=== PATIENT | male | born 1980 | race Caucasian/White ===

== ENCOUNTER 2016-09-14 11:24 | Emergency (ER) | payer OTHER ==
[~2016-09-14] VITALS: Ht 147.3 cm; Wt 74.8 kg
[~2016-09-14 11:24] MED LIST: ACETAMINOP160 MG/12 PER TUBE; AMANTADINE PER TUBE; AMANTADINE100 M1 PG; ARICEPT 5 MG TAB5 MG PER TUBE; BISACODYL SUPP10 MG RECTAL; CARBAMAZEP100 MG/5 M PER TUBE; CARBAMAZEPINE200 M2 PO; CERTAVITE W/LU1 EACH PER TUBE; CLONAZEPAM 0.50.5 M1 PER TUBE; CLONAZEPAM 1 MG1 M1 PO; CLOTRIMAZOLE 1%15 G1 TOP; ENEMA133 ML RECTAL; ERYGEL 2% GEL60 GM TOP; LEVOTHYROXINE0.05 MG PER TUBE; MOM PER TUBE; NAMENDA 10 MG T10 MG PER TUBE; NAMENDA10 MG/5 ML PER TUBE; ORADENT 0.1% DEN5 G1 TOP; SENNA PER TUBE; SERTRALINE20 MG/1 ML PER TUBE; TIZANIDINE HCL4 MG PER TUBE; TRIAMCINOLONE TOP; VALPROIC A250 MG/51 PER TUBE; ZANAFLEX2 M2 PER TUBE
[2016-09-14] MEDS ORDERED: SENNA PLUS TAB1 EACH PER TUBE (11:47)
[2016-09-14 12:44] LABS: ABSOLUTE NEUTROPHILS 5.2 thou/uL (1.4-8.2); BASOPHILS 1.1 % (0.0-2.0); EOSINOPHILS 2.6 % (0.0-3.0); HEMATOCRIT 45.7 % (42.0-52.0); HEMOGLOBIN 15.5 gm/dL (14.0-18.0); LYMPHOCYTES 21.1 % (24.0-44.0); MCH 35.1 pg (26.0-34.0); MCV 103.3 fL (80.0-100.0); MONOCYTES 11.5 % (1.0-8.0); PLATELET COUNT 162 thou/uL (150-400); POLYS 63.7 % (36.0-66.0); RBC 4.43 mil/uL (4.50-6.00); RDW 13.5 % (10.5-14.5); WBC 8.1 thou/uL (4.0-11.0)
[2016-09-14 12:57] LABS: ALBUMIN 3.7 g/dL (3.4-5.0); CREATININE 0.6 mg/dL (0.7-1.3); MANUAL DIFF NO; POTASSIUM 4.2 mmol/L (3.5-5.1); TOTAL BILIRUBIN 0.2 mg/dL (<0.1-1.0); TOTAL PROTEIN 8.1 g/dL (6.4-8.2)
[2016-09-14] MEDS ORDERED: NYSTATIN 100,0015 GM TOP (14:16)
== END 2016-09-14 16:44 | disposition home or self-care (01) ==
LOC: ER 11:24
PROVIDERS: Physician Assistant
DX: B37.49 Other urogenital candidiasis (principal); E03.9 Hypothyroidism, unspecified; E11.9 Type 2 diabetes mellitus without complications; Z88.8 Allergy status to other drugs, medicaments and biological substances

== ENCOUNTER 2018-01-18 15:05 | Emergency (ER) | payer OTHER ==
[~2018-01-18] VITALS: Ht 157.5 cm; Wt 65.8 kg
[~2018-01-18 15:05] MED LIST changes: +NYSTATIN 100,0015 GM TOP; +SENNA PLUS TAB1 EACH PER TUBE
== END 2018-01-18 19:00 | disposition home or self-care (01) ==
LOC: ER 15:05
DX: K94.23 Gastrostomy malfunction (principal); E03.9 Hypothyroidism, unspecified; E11.9 Type 2 diabetes mellitus without complications; Z88.8 Allergy status to other drugs, medicaments and biological substances; Y84.8 Other medical procedures as the cause of abnormal reaction of the patient, or of later complication, without mention of misadventure at the time of the procedure; Y82.8 Other medical devices associated with adverse incidents

== ENCOUNTER 2020-05-20 08:42 | Emergency (ER) | payer OTHER ==
[~2020-05-20] VITALS: Ht 172.7 cm; Wt 68.0 kg
[2020-05-20 09:48] VITALS: BP 129/98
== END 2020-05-20 09:48 ==
LOC: ER 08:42
DX: Z43.1 Encounter for attention to gastrostomy (principal); E03.9 Hypothyroidism, unspecified; E11.9 Type 2 diabetes mellitus without complications; Z79.899 Other long term (current) drug therapy; Z88.8 Allergy status to other drugs, medicaments and biological substances

== ENCOUNTER 2020-05-22 10:23 | Emergency (ER) | payer OTHER ==
[~2020-05-22] VITALS: Ht 162.6 cm; Wt 59.0 kg
--- NOTE | ~2020-05-22 | EMS ---
[facility] [address] [place] [address] EMS Patient Care Report Name: MARYURI GARNETT Room #: REG LILLIE Sutherland#: [id number] Admission: 05/22/20 Attend Phys: Discharge: Date of : 76 Report #: [id number] THIS REPORT FOR: //name// Report Transmitted: 05/22/2020 10:09 EMS Care Summary [place], [place]/[facility] Incident [id number] @ 05/22/2020 09:43 Incident Location [address] [place] [address] 324 Patient MARYURI GARNETT Male, 39 Years 1980 Patient Address [address] [place] [address] Patient History Depression,Quadriplegia,Hypothyroidism,Respiratory Failure, Patient Allergies No known allergies,Other drug allergy, Patient Medications Carbamazepine, Senna, Other, Levothyroxine, Acetaminophen, Tizanidine, Sertraline, Loperamide, Clonazepam, Chief Complaint pulled out PEG tube Disposition Transported No Lights/[place] Dispatch Reason Abdominal Pain/Problems Transported To [facility] Narrative 39 y/o male that pulled his PEG tube out Upon arrival the pt was lying in bed awake, conscious He is aphasic and [facility] [address] [place] [address] EMS Patient Care Report Name: MARYURI GARNETT Room #: REG LILLIE Sutherland#: [id number] Admission: 05/22/20 Attend Phys: Discharge: Date of : [birth year] Report #: [id number] contracted. This is his normal, He has a patent airway, breathing is normal, and has a strong reg radial pulse. The pt is bed bound due to an accident from when he was in his teens. The pt managed to pull his PEG tube out by accident. The pt was lifted onto our cot by EMS and staff at the [place] staff. The pt was covered with a blanket, secured to the cot, and loaded into the ambulance. VS were obtained. The pt was transported to [place] to have the PEG tube replaced. There was no incidents or changes with the pt. The pt was taken to room 2 and EMS gave report to RN. EMS returned to service. Initial Vitals @10:14P: 82,R: 16,BP: 124/84,Pain: 0/10,GCS: 6,SpO2: 100,Revised Trauma: 10, Assessments @10:11MENTAL:Person Oriented,Time Oriented,Place Oriented,Event Oriented,SKIN:HEENT:Head/Face: No Abnormalities,Neck/Airway: No Abnormalities,LUNG SOUNDS:General: No Abnormalities,ABDOMEN:General: No Abnormalities,PELVIS//GI:No Abnormalities,EXTREMITIES:Capillary Refill: Left Upper: < 2 Sec,Capillary Refill: Right Upper: < 2 Sec,Left Arm: No Abnormalities,Right Arm: No Abnormalities,Left Leg: No Abnormalities,Right Leg: No Abnormalities,PULSE:Radial: 2+ Normal,NEURO:No Abnormalities, Impression Acute abdomen Procedures @10:10ALS AssessmentResponse: UnchangedSucceeded Timeline 09:42,Call Received 09:42,Dispatch Notified 09:43,Dispatched 09:43,En Route 09:57,On Scene 09:58,At Patient 10:10,Depart Scene 10:10,ALS Assessment,Response: UnchangedSucceeded, 10:14,BP: 124/84 M,PULSE: 82,RR: 16 R,SPO2: 100 Ox,ETCO2: ,BG: ,PAIN: 0,GCS: 6, 10:18,At Destination 10:33,Call Closed Disclaimer v1.1 Copyright 2020 [employer] This EMS Care Summary contains data elements from the applicable legal record (which may be displayed differently). It is designed to provide pertinent information for the following purposes: continuity of care, clinical quality, and state data reporting. The complete legal record is available to ED staff [address] [address] EMS Patient Care Report Name: MARIOLAMARYURI Room #: REG LILLIE Sutherland#: [id number] Admission: 05/22/20 Attend Phys: Discharge: Date of : [birth year] Report #: [id number] and administrators of the receiving hospital in [employer]'s Patient Tracker. All data is provided "as is."
[2020-05-22 10:25] VITALS: BP 134/100
== END 2020-05-22 13:00 ==
LOC: ER 10:23
DX: Z43.1 Encounter for attention to gastrostomy (principal); E03.9 Hypothyroidism, unspecified; E11.9 Type 2 diabetes mellitus without complications; Z79.899 Other long term (current) drug therapy; Z79.2 Long term (current) use of antibiotics; Z88.1 Allergy status to other antibiotic agents

== ENCOUNTER 2021-04-14 09:30 | Emergency (ER) | payer OTHER ==
[~2021-04-14] VITALS: Ht 165.1 cm; Wt 70.3 kg
--- NOTE | ~2021-04-14 | EMS ---
[address] [address] EMS Patient Care Report Name: MARYURI GARNETT Room #: REG LILLIE Sutherland#: [id number] Admission: 04/14/21 Attend Phys: Discharge: Date of : [birth year] Report #: [id number] THIS REPORT FOR: //name// Report Transmitted: 04/14/2021 09:52 EMS Care Summary [place], [place]/[facility] Incident [id number] @ 04/14/2021 08:37 Incident Location [address] [facility] 324 Patient MARYURI GARNETT Male, 40 Years 1980 Patient Address [address] [place] [address] Patient History Diabetes,Quadriplegia,Past Traumatic Brain Injury,Constipation,Hypothyroidism,Dysphagia, Patient Allergies Other drug allergy, Patient Medications Carbamazepine, Acetaminophen, Bisacodyl, Levothyroxine, Tizanidine, Loperamide, Chief Complaint Vomiting/Constipation Disposition Transported No Lights/[place] Dispatch Reason Sick Person Transported To [facility] Narrative [id number] dispatched to a sick case at address stated above. [address] [address] EMS Patient Care Report Name: MARYURI GARNETT Room #: REG LILLIE Sutherland#: [id number] Admission: 04/14/21 Attend Phys: Discharge: Date of : [birth year] Report #: [id number] arrived on scene and made contact with pt. Pt was found laying supine in jail bed. 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 Pt maintaing own ABC's and has strong regular radial pulses. Pts mother on scene as well as jail RN state pt was given a suppository yesterday 04/13 in which RN found pt had been trying to make a bowel movement for over 45 minutes however was too constipated to pass. RN stated that pt then vomited twice today 04/14 and did not note any abnormalities, blood, or coffee ground consitency in emesis. Pt was then transferred to EMS cot and secured to stretcher. Pt was loaded into ambulance via stretcher and vitals were monitored continuously throughout transport. Pts abdomen was assessed and appeared soft/nontender in all quadrants. Pt G-tube did not show any abnormalities. Pt was connected to 2l of oxygen via nasal canula to improve baseline O2 sats. Pt responded well to therapy. Upon arrival to ED pt was unloaded from ambulance and brought to ER room 10. Pt was then transferred to hospital bed via draw sheet method and verbal report was given to RN. Pt care transferred to RN. M5Perry return in service. Initial Vitals @09:21P: 101,CO: 1,SpO2: 100, @09:14P: 101,CO: 1,SpO2: 97, @09:15P: 101,BP: 148/94, @09:09P: 103,R: 18,BP: 152/91,GCS: 8,Temp: 96F,Glucose: 95,CO: 6,SpO2: 93,Revised Trauma: 10,PR Suspected: false Assessments @09:00MENTAL:Other,SKIN:HEENT:LUNG SOUNDS:General: Vomiting,General: Other,ABDOMEN:General: Vomiting,General: Other,PELVIS//GI:No Abnormalities,EXTREMITIES:Left Arm: No Abnormalities,Right Arm: No Abnormalities,Left Leg: No Abnormalities,Right Leg: No Abnormalities,PULSE:NEURO:No Abnormalities,@09:15MENTAL:No Abnormalities,SKIN:No Abnormalities,HEENT:Head/Face: No Abnormalities,Eyes: No Abnormalities,Neck/Airway: No Abnormalities,LUNG SOUNDS:General: No Abnormalities,Left Upper: No Abnormalities,Right Upper: No Abnormalities,Left Lower: No Abnormalities,Right Lower: No Abnormalities,ABDOMEN:General: No Abnormalities,Left Upper: No Abnormalities,Right Upper: No Abnormalities,Left Lower: No Abnormalities,Right Lower: No Abnormalities,PELVIS//GI:No Abnormalities,EXTREMITIES:Left Arm: No Abnormalities,Right Arm: No Abnormalities,Left Leg: No Abnormalities,Right Leg: No Abnormalities,PULSE:NEURO:No Abnormalities, Impression Nausea Procedures [address] [address] EMS Patient Care Report Name: MARYURI GARNETT Room #: REG LILLIE Sutherland#: [id number] Admission: 04/14/21 Attend Phys: Discharge: Date of : [birth year] Report #: [id number] @08:57 ALS Assessment @09:10 Oxygen FlowRate: 2 Device: Nasal Cannula (NC) Response: ImprovedSucceeded @09:10 3-Lead ECG Response: UnchangedSucceeded @09:05 Stretcher Response: Unchanged Timeline 08:35,Call Received 08:35,Dispatch Notified 08:37,Dispatched 08:39,En Route 08:54,On Scene 08:56,At Patient 08:57,ALS Assessment, 09:05,Stretcher,Response: Unchanged 09:09,BP: 152/91 M,PULSE: 103,RR: 18 R,SPO2: 93 Ox,ETCO2: ,B,PAIN: ,GCS: 8, 09:10,Oxygen FlowRate: 2 Device: Nasal Cannula (NC) Response: ImprovedSucceeded, 09:10,3-Lead ECG,Response: UnchangedSucceeded, 09:14,BP: / M,PULSE: 101,RR: R,SPO2: 97 Ox,ETCO2: ,BG: ,PAIN: ,GCS: , 09:15,BP: 148/94 M,PULSE: 101,RR: R,SPO2: Ox,ETCO2: ,BG: ,PAIN: ,GCS: , 09:17,Depart Scene 09:21,BP: / M,PULSE: 101,RR: R,SPO2: 100 Ox,ETCO2: ,BG: ,PAIN: ,GCS: , 09:42,At Destination 09:47,Call Closed Disclaimer v1.1 Copyright 2020 [employer] This EMS Care Summary contains data elements from the applicable legal record (which may be displayed differently). It is designed to provide pertinent information for the following purposes: continuity of care, clinical quality, and state data reporting. The complete legal record is available to ED staff and administrators of the receiving hospital in [employer]'s Patient Tracker. All data is provided "as is."
[2021-04-14] MEDS ORDERED: LOPERAMIDE2 MG PER TUBE (09:56)
[2021-04-14] MEDS ORDERED: NAMENDA 10 MG T10 MG PER TUBE (09:57)
[2021-04-14] MEDS ORDERED: TIZANIDINE HCL4 M2 PER TUBE (10:17)
[2021-04-14] MEDS ORDERED: VALPROIC A250 MG/51 PER TUBE (10:18)
[2021-04-14] MEDS ORDERED: NOXIFOL-D32500 UNIT PER TUBE (10:19)
[2021-04-14] MEDS ORDERED: CENTRUM MU9 MG/15 ML PO (10:20)
[2021-04-14] MEDS ORDERED: FIBER-STAT15 GM/30 M PO (10:21)
[2021-04-14] MEDS ORDERED: IBU600 MG PER TUBE (10:21)
[2021-04-14] MEDS ORDERED: CLONAZEPAM 0.50.5 M1 PO (10:22)
[2021-04-14 11:41] LABS: ABSOLUTE NEUTROPHILS 12.6 thou/uL (1.4-8.2); BASOPHILS 0.4 % (0.0-2.0); EOSINOPHILS 0.1 % (0.0-3.0); HEMATOCRIT 47.5 % (42.0-52.0); HEMOGLOBIN 15.8 gm/dL (14.0-18.0); LYMPHOCYTES 4.7 % (24.0-44.0); MCH 35.3 pg (26.0-34.0); MCHC 33.3 g/dL (28.0-37.0); MONOCYTES 9.4 % (1.0-8.0); POLYS 85.4 % (36.0-66.0); RBC 4.49 mil/uL (4.50-6.00); RDW 13.3 % (10.5-14.5); WBC 14.7 thou/uL (4.0-11.0)
[2021-04-14 12:00] LABS: CREATININE 0.8 mg/dL (0.7-1.3); POTASSIUM 4.1 mmol/L (3.5-5.1)
[2021-04-14] MEDS ORDERED: ZOFRAN ODT4 MG PO (12:13)
[2021-04-14 12:32] VITALS: BP 129/99
[2021-04-14 12:50] LABS: PLATELET COUNT 206 thou/uL (150-400)
== END 2021-04-14 20:22 | disposition home or self-care (01) ==
LOC: ER 09:30
PROVIDERS: Emergency Medicine
DX: R11.2 Nausea with vomiting, unspecified (principal); E03.9 Hypothyroidism, unspecified; E11.9 Type 2 diabetes mellitus without complications; Z79.899 Other long term (current) drug therapy